=== PATIENT | male | born 1960 | race Caucasian/White ===

== ENCOUNTER 2018-01-29 20:39 | Emergency (ER) | payer BC ==
--- NOTE | 2018-01-29 20:59 | UC ---
Cardiac HPI - HPI Summary HPI Summary: 57 yo WM presents with left shoulder pain and radiating intermittent numbness for the last few weeks. Tonight had around 10-15minutes of anterior chest pain that has since resolved. During this episode of chest pain he had no SOB, headache, or dizziness. He tells me that he has never smoked and his blood pressure and lipids have always been "fine". He had a stress test as part of a physical a few years ago that was "normal" per pt. He does have a hx of a herniated cervical disc for which he is undergoing treatment (injections and PT). He says this "flares" up from time to time causing his left shoulder pain and occasional numbness into his fingers. Currently denies fever, chills, dizziness, SOB, chest pain, abdominal pain. - History of Current Complaint Chief Complaint: UCChestPain Stated Complaint: PAIN IN CHEST/LEFT SHOULDER Time Seen by Provider: 01/29/18 20:58 Hx Obtained From: Patient Initial Severity: Moderate Current Severity: Mild Pain Intensity: 2 - Allergy/Home Medications Allergies/Adverse Reactions: Allergies Allergy/AdvReac Type Severity Reaction Status Date / Time No Known Allergies Allergy Verified 01/29/18 20:46 Home Medications: Home Medications Acetaminophen [Tylenol Extra Strength] 1,000 mg PO ONCE 01/29/18 [History Confirmed 01/29/18] Omeprazole CAP* [Prilosec CAP* 20 MG] 1 cap PO DAILY 01/29/18 [History Confirmed 01/29/18] PMH/Surg Hx/FS Hx/Imm Hx - Additional Past Medical History Additional PMH: Cervical disc herniation GI/ History: Gastroesophageal Reflux - Surgical History Surgical History: Yes Surgery Procedure, Year, and Place: 2 LUMBAR LAMINECTOMY 2000/2006. LSP FUSION L4-5-2007 - Family History Known Family History: Positive: Unknown - Social History Occupation: Employed Full-time Lives: With Family Alcohol Use: Occasionally Substance Use Type: None Smoking Status (MU): Never Smoked Tobacco Review of Systems Constitutional: Negative Skin: Negative Respiratory: Negative Cardiovascular: Negative Gastrointestinal: Negative Motor: Negative Neurovascular: Negative Musculoskeletal: Other: - Neck pain Neurological: Negative Psychological: Negative All Other Systems Reviewed And Are Negative: Yes Physical Exam - Summary Physical Exam Summary: GENERAL: NAD. WDWN. No pain distress. SKIN: No rashes, sores, lesions, or open wounds. NECK: Supple. Nontender. No lymphadenopathy. No JVD or carotid bruits. CHEST: CTAB. No r/r/w. No accessory muscle use. Breathing comfortably and in no distress. CV: RRR. Without m/r/g. Pulses intact. Brisk cap refill. ABDOMEN: Soft. NTTP. No distention or guarding. Bowel sounds present MSK: Left UE: FROM. Strength 5/5. No edema or obvious bony deformities. Positive spurlings b/l. NEURO: Alert. CN II-XII grossly intact. PSYCH: Age appropriate behavior. Triage Information Reviewed: Yes Vital Signs: Initial Vital Signs Temp 98.8 F 01/29/18 20:41 Pulse 74 01/29/18 20:41 Resp 18 01/29/18 20:41 BP 134/85 01/29/18 20:41 Pulse Ox 98 01/29/18 20:41 Diagnostics - EKG Cardiac Rate: NL - 75bpm Cardiac Rhythm: Sinus: Normal Ectopy: None ST Segment: Normal - Assessment/Plan Course Of Treatment: EKG NSR with no ST changes. I had a long discussion with the patient that his symptoms could be from his ongoing cervical disc herniation , but given his new instance of chest pain a more appropriate workup and evaluation in the ED is warrented. Given that he is currently asymptomatic he elected to not seek further treatment, but agreed to go to the ED if his symptoms return. - Clinical Impression Provider Diagnoses: Cervical disc herniation. Left shoulder pain. Chest pain Discharge - Sign-Out/Discharge Documenting (check all that apply): Discharge/Admit/Transfer - Discharge Plan Condition: Stable Disposition: HOME Referrals: Cruz Trimble MD [Primary Care Provider] - Additional Instructions: If you develop a fever, shortness of breath, chest pain, new or worsening symptoms - please call your PCP or go to the ED. Your blood pressure was mildly elevated at todays visit. Please see your primary provider within 4 weeks for recheck and re-evaluation. 1) If your chest pain returns - please go to the ER for further evaluation. - Billing Disposition and Condition Condition: STABLE Disposition: HOME
[2018-01-29 21:17] VITALS: BP 134/85
== END 2018-01-29 21:14 | disposition home or self-care (01) ==
LOC: UCCORT 20:39
DX: M50.20 Other cervical disc displacement, unspecified cervical region (principal); M25.512 Pain in left shoulder; R07.9 Chest pain, unspecified
CPT/HCPCS: 93005; 99211; G0463